=== PATIENT | female | born 1990 | race Caucasian/White ===

== ENCOUNTER 2020-03-09 06:02 | Inpatient (IN) | payer OTHER, SELFPAY ==
[2020-03-09] VITALS (73 sets, daily range): BP systolic 81–187; BP diastolic 44–169; PULSE 68–122; RESP 12–16; TEMP 36.6–37.3; O2SAT 96–100; BMI 30.8
--- NOTE | 2020-03-09 06:30 | WPDANESEPP ---
Anes - Eval Pre Procedure Procedure: labor epidural Date/Time: 03/09/20 06:30 Surgeon: pavithra Preop Diagnosis: pain during labor Pre Op Diagnosis: induction Patient Data Age: 29 Gender: F Height: Weight: Allergies Allergy/AdvReac Type Severity Reaction Status Date / Time ciprofloxacin Allergy Intermediate SWELLING Verified 09/08/17 13:45 latex Allergy Mild RASH Verified 09/08/17 13:45 Home Medications Medication Instructions Recorded Confirmed Type PNV cmb#95-ferrous fumarate-FA 1 tablet PO DAILY 02/14/20 02/14/20 History [] Patient hx anesthesia problems: none Family hx anesthesia problems: none PMFSH Family History Family History (Updated 02/14/20 @ 12:34 by Alisa Bernal RN) Other No pertinent family history Social History Social History Substance use: never Gender identity (if verbalized by the patient): Female Spiritual care concerns: No Exam Day of Procedure 03/09/20 06:30
[2020-03-09] MEDS: OXYTOCIN 30 UNITS/NS 500 ML 30 UNITS/500 ML BAG IV CONT (06:49)
[2020-03-09] MEDS: LACTATED RINGERS 1,000 ML 125 ML IV CONT ×2 (06:50→08:55)
--- NOTE | 2020-03-09 06:50 | WPDOBADMIT ---
Obstetrics - Admit Note Admission Note: record reviewed. Additions to the history and/or subsequent changes in the physical findings follow. 29 y/o at 39 weeks here desiring induction of labor. GBS neg. AVSS NST reactive TOCO: contractions irregularly ABD soft, nontender, gravid, vertex EXT nontender Cervix 3/50/-2. AROM with clear fluid. A: IUP at term with favorable cervix, desiring induction. P: Oxytocin. Anticipate .
[2020-03-09 07:03] LABS: Basophils Percent Auto 0.3 % (0.2-1.2); Eosinophils Absolute Auto 0.1 K/mm3 (0-0.3); Eosinophils Percent Auto 0.8 % (0-4.4); Hematocrit 37.2 % (37.0-47.0); Hemoglobin 12.4 g/dL (12.0-15.0); Immature Granulocyte Absolute 0.04 K/mm3 (0.00-0.031); Immature Granulocyte Percent A 0.5 % (0-0.5); Lymphocytes Absolute Auto 1.78 K/mm3 (0.9-3.2); Lymphocytes Percent Auto 22.6 % (18.3-44.2); Mean Corpuscular HGB Conc 33.3 g/dl (32-36); Mean Corpuscular Hemoglobin 29.6 pg (26-34); Mean Corpuscular Volume 88.8 fl (80-100); Mean Platelet Volume 10.8 fl (7.4-10.4); Monocytes Absolute Auto 0.4 K/mm3 (0.1-0.6); Monocytes Percent Auto 4.8 % (2.6-8.5); Neutrophils Absolute Auto 5.6 K/mm3 (1.3-6.7); Platelet Count Result 230 k/mm3 (150-375); Red Blood Count 4.19 M/mm3 (4.2-5.4); Red Cell Distribution Width 13.8 % (11.5-14.5); White Blood Count 7.9 K/mm3 (4.5-10.0)
--- NOTE | 2020-03-09 07:20 | LDADM ---
This patient, Mia Hernandez, was admitted to Labor/Delivery/Recovery 102 on 03/09/20 at 06:02. Plans for labor, pain management and were discussed with patient. Patient/family oriented to hospital policies and general routines including ID bracelet, bed and alarms, visiting hours, pain management, procedures, bathroom and other care routines, personal items, smoking policy, room service/diet and guest tray routines, infant security routines, and visiting hours. Patient/Family are encouraged to report perceived risks to care and to ask questions if they do not understand what they are told or what they should do. See OBIX for further documentation.
[2020-03-09] MEDS: ONDANSETRON INJ 4 MG/2 ML VIAL IV PUSH (09:39)
--- NOTE | 2020-03-09 09:53 | WPDANESEFPP ---
Anes - Eval Final PreProcedure Day of Procedure 03/09/20 09:53 Patient weight: normal Neurological: alert and oriented ASA classification: II Emergent: no Anesthetic plan: proceed Anesthesia type and monitoring: regional epidural and standard monitoring Informed Consent: The patient's anesthetic plan and its attendant risks and benefits were discussed with the patient/family/POA. Questions were solicited and answers provided to the satisfaction of the patient/family/POA.
[2020-03-09 11:55] LABS: Rapid Plasma Reagin Non-Reactive (NonReactive)
--- NOTE | 2020-03-09 12:55 | PM.OBPRVD ---
OB - Delivery Note Procedure Delivery date: 03/09/20 Procedure: Induction of labor with Induction method: AROM and per pitocin protocol Delivery monitor: external FHT and external uterine Route of delivery: Laceration description: Perineal - 2nd Degree Delivery repair: vicryl (3-0) Specimen: Yes (cord blood) Estimated blood loss (mL): 125 Anesthesia type: Epidural Disposition: PACU Complications: None Narrative: 29 y/o at 39 weeks gestation who presented to the hospital for induction of labor. Oxytocin was administered intravenously. Amniotomy was performed with return of clear fluid. She received an epidural for pain control. Her labor progressed and her cervix dilated completely. She pushed with good effort and delivered the 's head to the perineum, followed by the body. The nose and mouth were bulb suctioned. After a delay, the cord was clamped and cut. The infant was handed off the field. Cord blood was collected. The placenta delivered spontaneously and was grossly normal in appearance. The usual 3 vessel cord was noted. A second degree midline perineal laceration was sustained. This was reapproximated using 3 0 Vicryl in the usual layered fashion. Excellent hemostasis resulted as did excellent reapproximation of the normal anatomy. Needle and instrument counts were correct. The patient was taken to recovery room in stable condition. The infant went to the nursery in stable condition. I was present and scrubbed for the entire delivery. Baby Date of : 03/09/20 Time of : 12:39 Weeks of gestation at delivery: 39 gender: Female Weight (pounds): 7 Weight (ounces): 10 presentation: vertex position: Left Occiput Anterior Placenta delivery description: Spontaneous and Normal Configuration cord vessel description: 3 Vessels and Nuchal Cord score one minute: 9 score five minutes: 9
--- NOTE | 2020-03-09 12:58 | PM.OBDSVD ---
DS: Admitting Diagnosis Admitting Diagnosis Admitting Diagnosis: IUP at 39 weeks Favorable cervix DS: Discharge Diagnosis Discharge Diagnosis (1) (normal spontaneous vaginal delivery): Code(s): O80 - Encounter for full-term uncomplicated delivery Status: Acute OB - DS: Summary OB Procedures : None OB Procedures Intrapartum: Spontaneous Vag Delivery OB Procedures: : None DS: Data Data Completed and Pending Labs on day of discharge: Labs from last 24 hours 03/09/20 03/09/20 03/09/20 06:44 06:44 06:44 WBC 7.9 RBC 4.19 L Hgb 12.4 Hct 37.2 MCV 88.8 MCH 29.6 MCHC 33.3 RDW 13.8 Plt Count 230 MPV 10.8 H Immature Gran % (Auto) 0.5 Neut % (Auto) 71.0 Lymph % (Auto) 22.6 Stark % (Auto) 4.8 Eos % (Auto) 0.8 Baso % (Auto) 0.3 Lymph # (Auto) 1.78 Stark # (Auto) 0.4 Eos # (Auto) 0.1 Baso # (Auto) 0.0 Abs Immat Gran (auto) 0.04 H Absolute Neuts (auto) 5.6 Absolute Nucleated RBC 0.0 Nucleated RBC % 0.0 RPR Non-reactive Blood Type O Positive Antibody Screen Negative Discharge Plan Discharge Attending physician on discharge: Josh Wilson Consulting providers: Rafael Weathers Discharging Clinician: Josh Wilson Patient Disposition: Home, Self-Care Activity: may shower, no straining and pelvic rest Diet: regular Discharge Instructions: Education: Mom and Baby Guide Given to: Mother Follow-Up: Call your delivering provider's office for an appointment to be seen in: 6 Weeks Mom and baby should come to the [facility] for the follow-up appointment. Appointment Date/Time: Friday, March 13, 2020 at 10:00 am What to expect at your follow-up visit: Blood Pressure Check Physical Assessment Call [phone] if you are unable to keep your appointment time. BREAST CARE: 1. Wear a snug supportive bra. 2. For engorgement discomfort: Breast Feeding: A. Apply warm moist washcloths B. Express milk as needed to relieve engorgement C. Wear loose clothing 3. For sore nipples: A. Identify correct latch-on B. Apply warm moist washcloths before and after nursing C. Air dry nipples after nursing D. May apply Lansinoh cream to nipples ABDOMINAL INCISION: (if applicable) 1. Allow incision to air dry 2. Do NOT use lotions for powders on your incision 3. When showering, allow soap and water to run over the incision, but do not wash incision EPISIOTOMY/PERINEAL CARE: 1. Until bleeding stops, use your glen bottle after urinating 2. Change your pad frequently throughout the day 3. You may take sitz baths several times a day (fill your bathtub with warm water and soak for 20 minutes.) Do NOT bathe in the water 4. No tub baths until seen by your physician - You may shower ACTIVITY: 1. Rest as much as possible. 2. Do not exercise or lift anything heavier than your baby (such as laundry or other children.) 3. Avoid stairs or driving as much as possible. 4. Do not put anything into the vagina. No douching, tampons, or sexual activity until seen by physician. NOTIFY PHYSICIAN IF YOU HAVE ANY QUESTIONS OR IF ANY OF THE FOLLOWING SYMPTOMS OCCUR: 1. If your perineum becomes red, swollen, or more painful than what you have experienced in the hospital. 2. If your vaginal bleeding becomes foul smelling. 3. If your vaginal bleeding becomes more heavy than a period or if your bleeding changes from pink to bright red. However, you may pass an occasional walnut-sized clot once or twice for the first week . 4. If you experience a sharp, shooting pain in you calves. 5. If you discover a hard, reddened area on your breast or if you experience flu-like symptoms. DIET: 1. Eat regular, well-balanced meals. 2. Drink plenty of fluids daily. For , drink to thirst. Jim
[2020-03-09] MEDS: OXYTOCIN 30 UNITS/NS 500 ML 30 UNITS/500 ML BAG 125 UNITS IV CONT (13:25)
[2020-03-09] MEDS: BENZOCAINE 20% AER SPR (*SP) 56 GM CAN 1 SPRAY TOPICAL (15:10)
[2020-03-09] MEDS: WITCH HAZEL 40 PADS 1 PAD TOPICAL (15:11)
[2020-03-09] MEDS: IBUPROFEN 600 MG TABLET PO ×2 (15:53→22:22)
--- NOTE | 2020-03-09 17:33 | PC.NURSE ---
Patient transferred to post room #290 via wheelchair. Support person present. Oriented to unit, room, information board, rooming in, admission packet and security measures. Patient verbalizes understanding.
[2020-03-09] MEDS: ACETAMINOPHEN 325 MG TABLET 650 MG PO (18:40)
[2020-03-10] MEDS: ACETAMINOPHEN 325 MG TABLET 650 MG PO ×4 (01:19→22:55)
[2020-03-10] MEDS: IBUPROFEN 600 MG TABLET PO ×3 (04:42→18:13)
[2020-03-10 05:27] LABS: Hematocrit 33.8 % (37.0-47.0)
[2020-03-10] MEDS: MULTIVIT/MIN/PREN/FOL AC/IRON TABLET 1 TAB PO (07:30)
[2020-03-10 07:35] VITALS: BP 116/57; PULSE 77; RESP 18; TEMP 36.9; O2SAT 99
--- NOTE | 2020-03-10 14:00 | PC.NURSE ---
Consulted with patient, mother reports she is using the nipple shield for most feedings. Mother used the shield with last child for several months before weaning off. Mother has some pain and difficulties obtaining a deep latch. Discussed nipple shield precautions and possible complications. Instructions given on application and cleaning of shield. Patient able to return demonstration on proper application of shield. Discussed the need to initiate pumping if continues to nurse with the shield. Patient verbalizes understanding. Reviewed infant feeding cues, frequencies, duration of feedings, feeding elimination flow sheet, and signs of adequate intake. Demonstrated stimulation techniques to wake infant for feeding. Assisted with to breast. Reviewed positioning/alignment in cross cradle, holding breast in U hold and guided asymmetrical latch on. Several attempts before was able to latch correctly without nipple shield. nursed eagerly, with steady draws and frequent swallowing noted. Reviewed signs of a correct latch, effective nursing and suck swallow ratio. will pull back while feeding to shallow latch. Demonstrated how to adjust latch more deeply while feeding. Kevin was able to adjust latch within a few attempts. Infant was able to maintain latch without discomfort to mother. Nipple care reviewed. Advised to stimulate to keep awake and nursing effectively to assist with intake and maintaining deep latch. Discussed returning to shield use if she is unable to get a deep latch without discomfort. Reviewed weaning techniques. Instructed mother to call out for RN assistance if she is unable to latch infant for feeding or she has discomfort with nursing. Instructed feeding should be initiated three hours from start of last feeding or if feeding cues are noted before. Mother voiced understanding of information shared.
--- NOTE | 2020-03-10 14:46 | PM.OBPNVD ---
OB - PN: Subj Subjective Date/time seen: 03/10/20 14:46 Narrative: Pain OK. OB - PN: Obj Data Labs CBC & Chem 7: 03/10/20 05:00 Labs: Laboratory Results - last 24 hr 03/10/20 05:00 Hgb 11.0 L Hct 33.8 L OB - PN A/P Plan Comments: A: PPD#1, doing well. P: Routine care. Exam Psych: Other: AVSS ABD soft, nontender, fundus firm EXT nontender
[2020-03-10 19:50] VITALS: BP 104/67; PULSE 78; RESP 16; TEMP 36.8; O2SAT 100
[2020-03-11] MEDS: IBUPROFEN 600 MG TABLET PO ×2 (02:15→10:02)
[2020-03-11] MEDS: ACETAMINOPHEN 325 MG TABLET 650 MG PO (05:00)
--- NOTE | 2020-03-11 06:27 | PM.OBPNVD ---
OB - PN: Subj Subjective Date/time seen: 03/11/20 06:27 Patient comments: no complaints and pain well controlled baby status: doing well and nursing well OB - PN: Obj Data Labs CBC & Chem 7: 03/10/20 05:00 OB - PN A/P Plan day: 2 Plan: routine care, discharge home and follow up 6 weeks Time Spent With Patient Time: Total time spent is greater than 50% in coordination of care (as documented) at patient's floor/unit and/or counseling patient: Time with patient: less than 15 minutes Review of Systems Review of Systems: All systems reviewed & are unremarkable except as noted in HPI and below Exam Const: General: no acute distress Eyes: General: appearance normal, both eyes and all related structures Neck: Neck: supple and no JVD Thyroid: thyroid normal Resp: Effort & Inspection: normal respiratory effort Auscultation: clear to auscultation bilaterally Cardio: Rate: regular rate Rhythm: regular rhythm GI: Inspection: non-distended GI Palp: Yes Soft to palpation, No Tenderness to palpation present (GI) and No Guarding due to palpation present (GI) Auscultation: normal bowel sounds : General: Yes bladder normal to palpation External Female Exam: normal external appearance Speculum Exam - Vagina: normal vaginal discharge and No vaginal bleeding Speculum Exam - Cervix: nontender Bimanual exam- vagina & uterus: bladder normal to palpation and No Cervical tenderness present OB/external & speculum: No vaginal bleeding Skin: General skin exam: no rashes or lesions noted Extrem: General: normal to inspection and no edema Psych: Mental Status: mental status grossly normal Affect: normal affect
[2020-03-11 08:45] VITALS: BP 112/56; PULSE 74; RESP 16; TEMP 36.3; O2SAT 100
[2020-03-11] MEDS: MULTIVIT/MIN/PREN/FOL AC/IRON TABLET 1 TAB PO (10:01)
--- NOTE | 2020-03-11 10:52 | PC.NURSE ---
Patient viewed the discharge video Mother & Baby Care, The First Two Weeks . Patient was given the opportunity and encouraged to ask questions. Patient verbalized understanding of information shared and has been given the mother/baby guide for home reference.
[2020-03-13 10:21] VITALS: BP 108/60; PULSE 67; RESP 20
== END 2020-03-11 11:19 | disposition home or self-care (01) | DRG 807 ==
LOC: ANHLDR 12:59 → ANHOB2 03-10 08:32 → ANHLDR 03-14 09:32 → ANHOB2 03-14 09:32
PROVIDERS: Admitting Provider Obstetrics & Gynecology; PCP Family Medicine; Visit Provider Obstetrics & Gynecology
DX: O69.81X0 Labor and delivery complicated by cord around neck, without compression, not applicable or unspecified (principal); Z37.0 Single live birth; Z3A.39 39 weeks gestation of pregnancy; O70.1 Second degree perineal laceration during delivery
CPT/HCPCS: 36415; 85014; 85018; 85025; 86592; 86850; 86900; 86901; A9270; J2405; J2590; J2795; J7120

== ENCOUNTER 2023-10-22 10:21 | Outpatient (CLI) | payer OTHER, SELFPAY ==
[2023-10-22 17:54] LABS: Basophils Percent Auto 0.5 % (0.2-1.2); Eosinophils Absolute Auto 0.1 K/mm3 (0-0.3); Eosinophils Percent Auto 0.8 % (0-4.4); Hematocrit 40.4 % (37.0-47.0); Hemoglobin 12.5 g/dL (12.0-15.0); Immature Granulocyte Absolute 0.02 K/mm3 (0.00-0.031); Immature Granulocyte Percent A 0.3 % (0-0.5); Lymphocytes Absolute Auto 1.11 K/mm3 (0.9-3.2); Lymphocytes Percent Auto 14.4 % (18.3-44.2); Mean Corpuscular HGB Conc 30.9 g/dl (32-36); Mean Corpuscular Hemoglobin 27.9 pg (26-34); Mean Corpuscular Volume 90.2 fl (80-100); Mean Platelet Volume 10.9 fl (7.4-10.4); Monocytes Absolute Auto 0.5 K/mm3 (0.1-0.6); Monocytes Percent Auto 6.9 % (2.6-8.5); Neutrophils Percent Auto 77.1 % (45.5-73.1); Platelet Count Result 248 k/mm3 (150-375); Red Blood Count 4.48 M/mm3 (4.2-5.4); Red Cell Distribution Width 14.3 % (11.5-14.5); White Blood Count 7.7 K/mm3 (4.5-10.0)
[2023-10-22 19:24] LABS: Alanine Aminotransferase 15 U/L (6-35); Albumin Level 4.1 g/dL (3.5-5.1); Alkaline Phosphatase 70 U/L (38-126); Anion Gap 6 mmol/L (8-16); Aspartate Amino Transferase 28 U/L (14-36); Bilirubin,Total 0.3 mg/dL (0.2-1.3); Blood Urea Nitrogen 15 mg/dL (7-17); Calcium 9.4 mg/dL (8.4-10.2); Carbon Dioxide 32 mmol/L (22-30); Chloride 102 mmol/L (98-107); Cholesterol 182 mg/dL (0-200); Estimated Glomerular Filt Rate > 60; Glucose 80 mg/dL (65-110); HDL Direct 64 mg/dL; Potassium 4.1 mmol/L (3.4-5.0); Sodium 140 mmol/L (137-145); Triglycerides 65 mg/dL (<150)
[2023-10-22 19:34] LABS: LDL Cholesterol Direct 83 mg/dL
[2023-10-22 20:01] LABS: Hemoglobin A1C 5.5 % (<5.7)
== END 2023-10-22 10:22 | disposition home or self-care (01) ==
LOC: ANHGOSHLAB 10:23
PROVIDERS: PCP Emergency Medicine; Visit Provider Emergency Medicine
DX: R50.9 Fever, unspecified (principal); Z13.1 Encounter for screening for diabetes mellitus; Z13.220 Encounter for screening for lipoid disorders
CPT/HCPCS: 36415; 80053; 80061; 83036; 84443; 85025